=== PATIENT | male | born 1995 | race American Indian/Alaskan Native ===

== ENCOUNTER 2017-10-08 10:32 | Emergency (ER) | payer OTHER ==
[2017-10-08 11:21] VITALS: BP 100/50
[2017-10-08] MEDS ORDERED: ANTIVERT PO ONE (12:39)
[2017-10-08] MEDS ORDERED: ZOFRAN ODT PO ONE (12:39)
--- NOTE | 2017-10-08 12:39 | Emergency Department Report ---
Chief Complaint: Adult Asthma Stated Complaint: ASTHMA Time Seen by Provider: 10/08/17 12:26 - HPI History of Present Illness: Patient is a 22-year-old [place] male with past medical history of asthma who is presenting with flulike symptoms. Patient's and mother state that he last night started B, short of breath whenever he gets short of breath he gets nauseous is vomited several times he also is reporting some dizziness with body aches. She denies any fever. Patient does have a mild headache and some dizziness especially when he stands and again the dizziness is a spinning sensation. His his albuterol inhaler this morning which is helped with shortness of breath however the patient still feels as though he is dizzy - ROS Review of Systems: Review of systems negative except for those elements in the HPI - Exam Vital Signs: Vital Signs 10/08/17 11:19 Temperature 98.2 F Pulse Rate 84 Respiratory 18 Rate Blood Pressure 100/50 O2 Sat by Pulse 99 Oximetry Physical Exam: Focused physical exam patient is alert and oriented 3 lungs are clear to auscultation heart tones are within normal limits abdomen soft nontender nondistended MSE screening note: Focused history and physical exam performed. Due to findings the following was ordered: Patient's will have his symptoms treated over given Zofran for the nausea vomiting Antivert for his dizziness flu swab has been ordered as well ED Disposition for MSE Condition: Stable Referrals: BINH ARZOLA MD [Primary Care Provider] - 3-5 Days
[2017-10-08] MEDS ORDERED: NACL 0.9% 1000 ML 1,000 ML IV ONE (13:21)
--- NOTE | 2017-10-08 13:44 | Emergency Department Report ---
ED Asthma HPI - General Chief Complaint: Adult Asthma Stated Complaint: ASTHMA Time Seen by Provider: 10/08/17 12:26 Source: patient Mode of arrival: Ambulatory Limitations: No Limitations - History of Present Illness Initial Comments: pt is a 22 y/o aam with hx of asthma who presents with flulike symptoms with n/ v and dizziness intermittent pt denies fever, last episode this am, pt asthma controlled with albuterol inhaler prn however pt is not adherent with albuterol. symptoms are worse at night including dizziness however pt endorse smoking marijuana at night with associated dizziness. pt states wheezing is improving with nebs given in ed. MD Complaint: wheezing Onset/Timin -: week(s) Asthma History: childhood onset Severity: moderate Context: recent URI, medication non-compliance, smoke exposure Associated Symptoms: dry cough Treatments Prior to Arrival: inhaled bronchodilator - Related Data Current Asthma Therapy: inhaled bronchodilator Previous Rx's Medication Instructions Recorded Last Taken Type ALBUTEROL Inhaler [ProAir HFA 2 puff IH QID PRN #1 inhalation 10/08/17 Unknown Rx Inhaler] diphenhydrAMINE [Benadryl CAP] 25 mg PO Q8HR PRN #30 capsule 10/08/17 Unknown Rx guaiFENesin/DM 100/10MG 10 ml PO Q4HR PRN #1 bottle 10/08/17 Unknown Rx [Robitussin Dm] predniSONE [Deltasone] 40 mg PO QDAY #10 tab 10/08/17 Unknown Rx Allergies Allergy/AdvReac Type Severity Reaction Status Date / Time bee venom protein (honey bee) Allergy Swelling Verified 10/08/17 11:18 yellow jackets Allergy Swelling Uncoded 10/08/17 11:18 ED Review of Systems ROS: Stated complaint: ASTHMA Other details as noted in HPI Constitutional: denies: chills, fever Eyes: denies: eye pain, eye discharge, vision change ENT: throat pain, congestion Respiratory: cough, wheezing. denies: shortness of breath Cardiovascular: as per HPI Endocrine: no symptoms reported Gastrointestinal: denies: abdominal pain, nausea, diarrhea Genitourinary: denies: urgency, dysuria Musculoskeletal: denies: back pain, joint swelling, arthralgia Skin: denies: rash, lesions Neurological: denies: headache, weakness, paresthesias Psychiatric: denies: anxiety, depression Hematological/Lymphatic: denies: easy bleeding, easy bruising ED Past Medical Hx - Past Medical History Previous Medical History?: Yes Hx Asthma: Yes - Surgical History Past Surgical History?: No - Social History Smoking Status: Current Every Day Smoker Substance Use Type: Marijuana - Medications Home Medications: Home Medications Medication Instructions Recorded Confirmed Last Taken Type ALBUTEROL Inhaler [ProAir HFA 2 puff IH QID PRN #1 inhalation 10/08/17 Unknown Rx Inhaler] diphenhydrAMINE [Benadryl CAP] 25 mg PO Q8HR PRN #30 capsule 10/08/17 Unknown Rx guaiFENesin/DM 100/10MG 10 ml PO Q4HR PRN #1 bottle 10/08/17 Unknown Rx [Robitussin Dm] predniSONE [Deltasone] 40 mg PO QDAY #10 tab 10/08/17 Unknown Rx ED Physical Exam - General Limitations: No Limitations General appearance: alert, in no apparent distress - Head Head exam: Present: atraumatic, normocephalic - Eye Eye exam: Present: normal appearance, PERRL, EOMI Pupils: Present: normal accommodation - ENT ENT exam: Present: mucous membranes moist - Neck Neck exam: Present: normal inspection, full ROM. Absent: lymphadenopathy, thyromegaly - Respiratory Respiratory exam: Present: wheezes, chest wall tenderness. Absent: rales, rhonchi, stridor, accessory muscle use, decreased breath sounds, prolonged expiratory - Cardiovascular Cardiovascular Exam: Present: regular rate, normal rhythm, normal heart sounds. Absent: systolic murmur, diastolic murmur, rubs, gallop - GI/Abdominal GI/Abdominal exam: Present: soft, normal bowel sounds. Absent: distended, tenderness, guarding, rebound, rigid, mass, bruit - Rectal Rectal exam: Present: deferred - Extremities Exam Extremities exam: Present: normal inspection - Back Exam Back exam: Present: normal inspection, full ROM. Absent: tenderness - Neurological Exam Neurological exam: Present: alert, oriented X3, CN II-XII intact, normal gait, reflexes normal - Psychiatric Psychiatric exam: Present: normal affect, normal mood - Skin Skin exam: Present: warm, dry, intact, normal color. Absent: rash ED Course Vital Signs 10/08/17 10/08/17 11:19 12:42 Temperature 98.2 F Pulse Rate 84 Respiratory 18 Rate Blood Pressure 100/50 O2 Sat by Pulse 99 100 Oximetry ED Medical Decision Making - Medical Decision Making pt is a 22 y/o aam with hx of asthma who presents with flulike symptoms with n/ v and dizziness intermittent pt denies fever, last episode this am, pt asthma controlled with albuterol inhaler prn however pt is not adherent with albuterol. symptoms are worse at night including dizziness however pt endorse smoking marijuana at night with associated dizziness. pt states wheezing is improving with nebs given in ed. lungs mild exp wheezes , ent: mild tm erythema mild pain with movement, nose: no obstruction no polyps, pharynx: moderate erythema no exudate no lesions, uvula midline no stridor, pt dizziness resolved with ivfs, pt is now ambulatory through entire ed without increased sob or wheezing plan: refill abluterol, prednisone, benadryl, robitussin, follow up with Dr. Ramsey in 2-3 days will return to emergency if symptoms worsen. Critical care attestation.: If time is entered above; I have spent that time in minutes in the direct care of this critically ill patient, excluding procedure time. ED Disposition Clinical Impression: Bronchitis, Flu-like symptoms Asthma Qualifiers: Asthma severity: moderate Asthma persistence: persistent Asthma complication type: uncomplicated Qualified Code(s): J45.40 - Moderate persistent asthma, uncomplicated Disposition: DC- TO HOME OR SELFCARE Is pt being admited?: No Does the pt Need Aspirin: No Condition: Good Instructions: Asthma (ED), Chronic Bronchitis (ED), Influenza (ED) Prescriptions: ALBUTEROL Inhaler [ProAir HFA Inhaler] 2 puff IH QID PRN #1 inhalation PRN Reason: Shortness Of Breath diphenhydrAMINE [Benadryl CAP] 25 mg PO Q8HR PRN #30 capsule PRN Reason: dizziness guaiFENesin/DM 100/10MG [Robitussin Dm] 10 ml PO Q4HR PRN #1 bottle PRN Reason: Cough predniSONE [Deltasone] 40 mg PO QDAY #10 tab Referrals: BINH ARZOLA MD [Primary Care Provider] - 3-5 Days Forms: Work/School Release Form(ED) Time of Disposition: 14:52
== END 2017-10-08 14:59 | disposition home or self-care (01) ==
LOC: ED 10:32
DX: J40 Bronchitis, not specified as acute or chronic (principal); J45.909 Unspecified asthma, uncomplicated; F17.200 Nicotine dependence, unspecified, uncomplicated; F12.10 Cannabis abuse, uncomplicated; Z91.030 Bee allergy status; Z91.048 Other nonmedicinal substance allergy status
CPT/HCPCS: 87400; 96360; 99283; J7030; Q0162

== ENCOUNTER 2022-05-27 11:52 | Emergency (ER) | payer SELFPAY ==
[2022-05-27 12:26] VITALS: BP 129/73
--- NOTE | 2022-05-27 12:28 | Emergency Department Report ---
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 He recently started [employer] job and states he gets dizzy when at work. He denies being afraid of heights. No cp. No sob. No fever or chills. No abd pain. No back pain. No fall or trauma. -: Sudden Consistency: intermittent Improves With: other (being off roof) Worsens With: other (when on roof) Associated Symptoms: denies other symptoms, nausea. denies: vomiting, diarrhea, fever, chills, constipation, dysuria, hematemesis, hematochezia, melena, hematuria, anorexia, syncope - Related Data Previous Rx's Medication Instructions Recorded Last Taken Type Albuterol Mdi (or & Nicu Only) 2 puff IH QID PRN #1 inhalation 10/08/17 Unknown Rx [ProAir HFA Inhaler] diphenhydrAMINE [Benadryl CAP] 25 mg PO Q8HR PRN #30 capsule 10/08/17 Unknown Rx guaiFENesin/DM 100/10MG 10 ml PO Q4HR PRN #1 bottle 10/08/17 Unknown Rx [Robitussin Dm] predniSONE [Deltasone] 40 mg PO QDAY #10 tab 10/08/17 Unknown Rx Allergies Allergy/AdvReac Type Severity Reaction Status Date / Time bee venom protein (honey bee) Allergy Swelling Verified 05/27/22 12:26 yellow jackets Allergy Swelling Uncoded 05/27/22 12:26 ED Review of Systems ROS: Stated complaint: STOMACH HURTS AND DIZZY Other details as noted in HPI Comment: All other systems reviewed and negative ED Past Medical Hx - Past Medical History Previous Medical History?: Yes Hx Asthma: Yes - Surgical History Past Surgical History?: No - Social History Smoking Status: Current Every Day Smoker Substance Use Type: Marijuana - Medications Home Medications: Home Medications Medication Instructions Recorded Confirmed Last Taken Type Albuterol Mdi (or & Nicu Only) 2 puff IH QID PRN #1 inhalation 10/08/17 Unknown Rx [ProAir HFA Inhaler] diphenhydrAMINE [Benadryl CAP] 25 mg PO Q8HR PRN #30 capsule 10/08/17 Unknown Rx guaiFENesin/DM 100/10MG 10 ml PO Q4HR PRN #1 bottle 10/08/17 Unknown Rx [Robitussin Dm] predniSONE [Deltasone] 40 mg PO QDAY #10 tab 10/08/17 Unknown Rx ED Physical Exam - General Limitations: No Limitations General appearance: alert, in no apparent distress - Head Head exam: Present: atraumatic, normocephalic - Eye Eye exam: Present: normal appearance - ENT ENT exam: Present: mucous membranes moist - Neck Neck exam: Present: normal inspection - Respiratory Respiratory exam: Present: normal lung sounds bilaterally. Absent: respiratory distress - Cardiovascular Cardiovascular Exam: Present: regular rate, normal rhythm. Absent: systolic mur mur, diastolic murmur, rubs, gallop - GI/Abdominal GI/Abdominal exam: Present: soft, normal bowel sounds - Rectal Rectal exam: Present: deferred - Extremities Exam Extremities exam: Present: normal inspection - Back Exam Back exam: Present: normal inspection - Neurological Exam Neurological exam: Present: alert, oriented X3 - Psychiatric Psychiatric exam: Present: normal affect, normal mood - Skin Skin exam: Present: warm, dry, intact, normal color. Absent: rash ED Course Vital Signs 05/27/22 12:24 Temperature 98.4 F Pulse Rate 59 L Respiratory 18 Rate Blood Pressure 129/73 [Left] O2 Sat by Pulse 99 Oximetry ED Medical Decision Making - Lab Data Result diagrams: 05/27/22 12:55 05/27/22 12:55 - Medical Decision Making Lab Results 05/27/22 05/27/22 Range/Units 12:55 12:55 WBC 7.6 (4.5-11.0) K/mm3 RBC 5.67 H (3.65-5.03) M/mm3 Hgb 15.5 H (11.8-15.2) gm/dl Hct 46.8 H (35.5-45.6) % MCV 83 L (84-94) fl MCH 27 L (28-32) pg MCHC 33 (32-34) % RDW 13.5 (13.2-15.2) % Plt Count 239 (140-440) K/mm3 Sodium 140 (137-145) mmol/L Potassium 4.2 (3.6-5.0) mmol/L Chloride 104.7 (98-107) mmol/L Carbon Dioxide 26 (22-30) mmol/L Anion Gap 14 mmol/L BUN 10 (9-20) mg/dL Creatinine 1.1 (0.8-1.3) mg/dL Estimated GFR > 60 ml/min BUN/Creatinine Ratio 9 % Glucose 105 H (75-100) mg/dL Calcium 9.4 (8.4-10.2) mg/dL Vital Signs 05/27/22 12:24 Temperature 98.4 F Pulse Rate 59 L Respiratory 18 Rate Blood Pressure 129/73 [Left] O2 Sat by Pulse 99 Oximetry labs noted Given it is May in [place] and pt's Hgb of 15- in the context of working on roofs- I suspect the pt is not drinking enough water while in the heat. When I suggested this to the pt - he stated that he told his boss that. Pt encouraged to drink more water harjinder when outside and to avoid etoh Pt being d/c home with dc plan of care including diet, meds, activity and follow up. He verbalizes understanding of plan of care. - Differential Diagnosis ro electrolytes imbalance/dehydration Critical care attestation.: If time is entered above; I have spent that time in minutes in the direct care of this critically ill patient, excluding procedure time. ED Disposition Clinical Impression: Heat exhaustion Disposition: 01 HOME / SELF CARE / HOMELESS Is pt being admited?: No Does the pt Need Aspirin: No Condition: Stable Instructions: Dehydration, Adult, [id number] Additional Instructions: WATER WE DISCUSSED CHANGE POSITION SLOWLY Referrals: SATYA RAMSAY MD [Primary Care Provider] - 3-5 Days Forms: Work/School Release Form(ED) Time of Disposition: 14:24
[2022-05-27 13:50] LABS: Hematocrit 46.8 % (35.5-45.6); Hemoglobin 15.5 gm/dl (11.8-15.2); Mean Corpuscular HGB Conc 33 % (32-34); Mean Corpuscular Volume 83 fl (84-94); Platelet Count 239 K/mm3 (140-440); Red Blood Count 5.67 M/mm3 (3.65-5.03); Red Cell Distribution Width 13.5 % (13.2-15.2)
[2022-05-27 14:10] LABS: BUN/Creatinine Ratio 9; Blood Urea Nitrogen 10 mg/dL (9-20); Calcium 9.4 mg/dL (8.4-10.2); Hemolysis Index 10
--- NOTE | 2022-05-28 18:30 | Electrocardiograph Report ---
[facility] Test Date: 2022-05-27 Test Time: 12:31:15 Pat Name: YANI NEGRON Department: Room: Gender: M Pc Maintenance Technician: KECIA : 1995 Requested By: YOHANA VÁSQUEZ Order Number: [id number] Reading MD: Kong Frey Measurements Intervals [place] Rate: 53 P: 36 CA: 143 QRS: 48 QRSD: 100 T: 40 QT: 425 QTc: 401 Interpretive Statements Sinus bradycardia Otherwise normal ECG No previous ECG available for comparison Electronically Signed On 05-28-2022 18:30:10 EDT by Kong Frey
== END 2022-05-27 14:30 | disposition home or self-care (01) ==
LOC: ED 11:52
DX: T67.5XXA Heat exhaustion, unspecified, initial encounter (principal); Z91.030 Bee allergy status; Z91.038 Other insect allergy status; F10.20 Alcohol dependence, uncomplicated; F17.200 Nicotine dependence, unspecified, uncomplicated; X58.XXXA Exposure to other specified factors, initial encounter; Y93.89 Activity, other specified; Y92.89 Other specified places as the place of occurrence of the external cause; Y99.8 Other external cause status
CPT/HCPCS: 36415; 80048; 85027; 93005; 99283